=== PATIENT | male | born 1960 | race Caucasian/White ===

== ENCOUNTER 2017-09-04 11:54 | Inpatient (IN) | payer OTHER ==
[~2017-09-04] VITALS: Ht 182.9 cm; Wt 90.7 kg
[2017-09-04] MEDS ORDERED: LORAZEPAM 0.5 MG TABLET PO ONE (12:00)
[2017-09-04] MEDS ORDERED: LORAZEPAM 1 MG TABLET ONE (12:11)
[2017-09-04 12:12] LABS: BASOPHILS % (AUTO) 0.5 % (0.0-2.0); EOSINOPHILS % (AUTO) 0.1 % (0.0-7.0); HEMATOCRIT 45.4 % (36.7-47.1); HEMOGLOBIN 15.7 g/dL (12.5-16.3); LYMPHOCYTES # (AUTO) 0.8 K/uL (20.0-40.0); LYMPHOCYTES % (AUTO) 13.2 % (20.5-51.5); MEAN CORPUSCULAR HEMOGLOBIN 32.3 uug (23.8-33.4); MEAN CORPUSCULAR HGB CONC 35 g/dL (32.5-36.3); MEAN CORPUSCULAR VOLUME 93.3 fL (73.0-96.2); MONOCYTES # (AUTO) 0.4 K/uL (2.0-10.0); MONOCYTES % (AUTO) 7.1 % (0.0-11.0); NEUTROPHILS # (AUTO) 4.8 K/uL (1.8-8.9); NEUTROPHILS % (AUTO) 79.1 % (38.5-71.5); PLATELET COUNT (AUTO) 169 K/uL (152-348); RED BLOOD CELL COUNT(AUTO) 4.87 MIL/uL (4.06-5.63)
[2017-09-04] MEDS ORDERED: CETI-102 PO (12:13)
[2017-09-04] MEDS ORDERED: ALBU0.63 IH (12:13)
[2017-09-04] MEDS ORDERED: AMLO10TA2 PO (12:13)
[2017-09-04] MEDS ORDERED: FLUT9.9S NS (12:13)
--- NOTE | 2017-09-04 12:15 | NUR ---
PT IS IN ROOM #1B. DR VARGAS EVALUATED THE PT.
[2017-09-04 12:18] LABS: CREATININE 0.8 mg/dL (0.6-1.3); POTASSIUM 3.4 mmol/L (3.5-5.1)
[2017-09-04] MEDS ORDERED: LORAZEPAM 2 MG/1 ML VIAL IM ONE (12:30)
[2017-09-04] MEDS ORDERED: LORAZEPAM 2 MG/1 ML VIAL ONE (12:36)
[2017-09-04] MEDS ORDERED: IV NORMAL SALINE 1000 ML BAG IV ONE (13:45)
--- NOTE | 2017-09-04 14:06 | NUR ---
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 PT WAS TRANSFERED TO ROOM #224.
[2017-09-04 14:24] VITALS: BP 149/90
[2017-09-04] MEDS ORDERED: ONDANSETRON 4 MG/2 ML VIAL IV PRN (14:30)
[2017-09-04] MEDS ORDERED: MORPHINE SULFATE 2 MG/1 ML DISP.SYRIN IV PRN (14:30)
[2017-09-04] MEDS ORDERED: CETIRIZINE HCL 10 MG TABLET PO PRN (14:30)
[2017-09-04] MEDS: ASPIRIN 81 MG TAB.CHEW PO SCH (14:30)
[2017-09-04] MEDS ORDERED: NITROGLYCERIN 0.4 MG/TAB BOTTLE SL PRN (14:30)
[2017-09-04] MEDS ORDERED: MORPHINE SULFATE 4 MG/1 ML DISP.SYRIN IV PRN (14:45)
[2017-09-04] MEDS: CARVEDILOL 6.25 MG TABLET PO SCH ×2 (15:45→18:14)
--- NOTE | 2017-09-04 17:08 | NUR ---
Dr. Shukla in to examine pt. Aspirin [address] Shukla due to Aspirin 325 MG given prior to admission.
--- NOTE | 2017-09-04 19:15 | NUR ---
Received pt awake. alert, orientedx3. Pt shows no signs of distress. No complaint of pain Pt iv intact and patent. Call light within reach. Bed alarm on and in low position, side railsupx2. Safety and comfort provided. Will continue to monitor.
[2017-09-04 19:35] VITALS: BP 153/93
[2017-09-04 23:44] VITALS: BP 125/92
[2017-09-05 03:48] VITALS: BP 141/90
[2017-09-05 06:14] LABS: BASOPHILS % (AUTO) 0.5 % (0.0-2.0); EOSINOPHILS # (AUTO) 0.1 K/uL (0.0-0.7); EOSINOPHILS % (AUTO) 1.7 % (0.0-7.0); HEMATOCRIT 45.5 % (36.7-47.1); HEMOGLOBIN 15.7 g/dL (12.5-16.3); LYMPHOCYTES % (AUTO) 19.9 % (20.5-51.5); MEAN CORPUSCULAR HEMOGLOBIN 32.6 uug (23.8-33.4); MEAN CORPUSCULAR HGB CONC 35 g/dL (32.5-36.3); MEAN CORPUSCULAR VOLUME 94.2 fL (73.0-96.2); MONOCYTES # (AUTO) 0.7 K/uL (2.0-10.0); MONOCYTES % (AUTO) 14.2 % (0.0-11.0); NEUTROPHILS # (AUTO) 3.2 K/uL (1.8-8.9); NEUTROPHILS % (AUTO) 63.7 % (38.5-71.5); PLATELET COUNT (AUTO) 154 K/uL (152-348); RED BLOOD CELL COUNT(AUTO) 4.83 MIL/uL (4.06-5.63); WHITE BLOOD COUNT (AUTO) 4.9 K/uL (3.6-10.2)
--- NOTE | 2017-09-05 06:28 | NUR ---
PT SLEPT THROUGHOUT THE SHIFT. PT SHOWS NO SIGNS OF DISTRESS. PT IV INTACT AND PATENT. PT STABLE.SAFETY AND COMFORT PROVIDED. 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
[2017-09-05 07:08] LABS: CREATININE 0.8 mg/dL (0.6-1.3); MAGNESIUM 2.2 mg/dL (1.8-2.4); PHOSPHOROUS 3.6 mg/dL (2.5-4.9)
[2017-09-05 08:43] VITALS: BP 133/91
[2017-09-05] MEDS: ASPIRIN 81 MG TAB.CHEW PO SCH (08:43)
[2017-09-05] MEDS: CARVEDILOL 6.25 MG TABLET PO SCH (08:43)
[2017-09-05] MEDS ORDERED: AMLODIPINE 10 MG TABLET PO SCH (09:00)
--- NOTE | 2017-09-05 11:10 | NUR ---
Pt D/C at 1110. Pt refused Pharmacist instructions regarding medications. Pt will follow up with PCP. D/C instructions and educations provided prior to pt leaving. No pain, no SOB, no C/P, no N/V prior to D/C.
== END 2017-09-05 11:10 | disposition home or self-care (01) | DRG 206 ==
LOC: ER 11:54 → TELE 14:04
PROVIDERS: ADMIT Internal Medicine; ATTEND Internal Medicine
DX: M94.0 Chondrocostal junction syndrome [Tietze] (principal); F41.9 Anxiety disorder, unspecified; E87.6 Hypokalemia; Z86.010 Personal history of colon polyps; Z98.1 Arthrodesis status; I10 Essential (primary) hypertension; K21.9 Gastro-esophageal reflux disease without esophagitis; J45.909 Unspecified asthma, uncomplicated; R73.9 Hyperglycemia, unspecified; Z79.1 Long term (current) use of non-steroidal anti-inflammatories (NSAID)
CPT/HCPCS: 36415; 70030-TC; 71045; 83735; 84100; 84443; 85025; 93005; 93307; A4663; J2060; J7030